=== PATIENT | male | born 1965 | race Caucasian/White ===

== ENCOUNTER 2025-04-19 08:44 | Emergency (ER) | payer BC, SELFPAY ==
[2025-04-19 08:49] VITALS: BP 193/100
[2025-04-19 09:08] VITALS: BMI 26.2
--- NOTE | 2025-04-19 09:13 | ED.GENMED ---
History of Present Illness
<Anais Petty PA-C - Last Filed: 04/19/25 13:19>
General
Chief Complaint: Heart Rate Problem
Time Seen by Provider: 04/19/25 08:57
History of Present Illness
History of Present Illness:
Davdi is a 67-year-old male medical history of hypothyroidism, hyperlipidemia, and episodes of idiopathic tachycardia that have never been captured on telemetry presents after an episode of high heart rates this morning to the 150s. He reports that
he felt palpitations and checked his Apple Watch and saw that his heart rate was in the mid 150s and then came down to the 130s to the hospital. Did not feel dizzy or lightheaded. No nausea or vomiting. Denies any chest pain or shortness of
associated with this event. Reports feeling normal here at the ER.
Past History
<Anais Petty PA-C - Last Filed: 04/19/25 13:19>
Past History
ED Past Medical History: Hypothyroidism
ED Past Surgical History: None
Social History
Tobacco: Non-smoker
Alcohol: None
Drug: None
Phy Exam
<Anais Petty PA-C - Last Filed: 04/19/25 13:19>
General Physical Exam
General Presentation: well appearing and no apparent distress
General Skin: warm and dry
General Habitus: normal
General Mental: alert
General Hydration: appears well hydrated
ENT Exam
ENT Exam: EOMI, pharynx normal, neck supple and normocephalic
Eye Exam
Eye Exam: PERRL, cornea clear and conjunctiva normal
Cardiovascular Exam
Cardiovascular Exam: regular rate/rhythm, no edema, no murmur and normal peripheral pulses
Pulmonary Exam
Pulmonary Exam: lungs clear, no respiratory distress, no rales, no crackles, no rhonchi, no stridor, no wheezing and no cough
Gastrointestinal Exam
Gastrointestinal Exam: normal bowel sounds, non tender, soft, no organomegaly, no pulsatile mass and non distended
Neurological Exam
Neurological Exam: alert, oriented x3, no motor deficits and speech normal
Musculoskeletal Exam
Musculoskeletal Exam: full ROM and no edema
Skin Exam
Skin Exam: normal color, warm/dry, no rash and no petechia
Psychiatric Exam
Psychiatric Exam: normal mood/affect
Course
<Anais Petty PA-C - Last Filed: 04/19/25 13:19>
Orders/Labs/Results
Orders:
Orders
04/19/25 08:53
Electrocardiogram (*1) Urgent
Reason for Study: Chest Pain
EKG- Treatment ONCE
04/19/25 09:15
Basic Metabolic Panel Urgent
Complete Blood Count/With Diff Urgent
Thyroid profile [TSH Reflex To Free T4] Urgent
Troponin I Urgent
Abnormal Lab Results
04/19/25
09:15
Absolute Monos (auto) 0.7 H 10^3/uL
(0.1-0.6)
Monocytes % 10.3 H %
(1.7-9.3)
Glucose 119 H mg/dl
(70-99)
04/19/25 09:15
04/19/25 09:15
Vital Signs
Initial and Last Documented VS:
Initial Vital Signs
Temp Pulse Resp BP Pulse Ox
36.4 C 134 20 193/100 100
04/19/25 08:49 04/19/25 08:49 04/19/25 08:49 04/19/25 08:49 04/19/25 08:49
Last Documented Vital Signs
Temp Pulse Resp BP Pulse Ox
36.4 C 72 16 112/79 95
04/19/25 08:49 04/19/25 12:45 04/19/25 10:01 04/19/25 12:59 04/19/25 12:45
<Sony H. DO Jeny - Last Filed: 04/19/25 12:59>
Orders/Labs/Results
Orders:
Orders
04/19/25 08:53
Electrocardiogram (*1) Urgent
Reason for Study: Chest Pain
EKG- Treatment ONCE
04/19/25 09:15
Basic Metabolic Panel Urgent
Complete Blood Count/With Diff Urgent
Thyroid profile [TSH Reflex To Free T4] Urgent
Troponin I Urgent
Abnormal Lab Results
04/19/25
09:15
Absolute Monos (auto) 0.7 H 10^3/uL
(0.1-0.6)
Monocytes % 10.3 H %
(1.7-9.3)
Glucose 119 H mg/dl
(70-99)
04/19/25 09:15
04/19/25 09:15
Vital Signs
Initial and Last Documented VS:
Initial Vital Signs
Temp Pulse Resp BP Pulse Ox
36.4 C 134 20 193/100 100
04/19/25 08:49 04/19/25 08:49 04/19/25 08:49 04/19/25 08:49 04/19/25 08:49
Last Documented Vital Signs
Temp Pulse Resp BP Pulse Ox
36.4 C 72 16 112/79 95
04/19/25 08:49 04/19/25 12:45 04/19/25 10:01 04/19/25 12:59 04/19/25 12:45
<Anais Petty PA-C - Last Filed: 04/19/25 13:19>
MDM/Problems Addressed
Differential Diagnosis Includes:
Differential includes but is not limited to Rapid AFib, SVT, other arrhythmias, hyperthyroidism, ACS, electrolyte derangements
EKG obtained and reviewed. NSR at 84bpm - unchanged from previous. CBC and BMP WNL. TSH normal normal
Orthostatics negative.
Discussed findings with patient. He provides more information and is able to access amatory results from prior to monitor but showed a brief episode of SVT. Given this and history of this morning was consistent with another run of SVT. Discussed
vagal maneuvers should it recur. Return precautions were discussed in depth. Will follow-up with primary care physician and electric plater
<Anais Petty PA-C - Last Filed: 04/19/25 13:19>
*Pulse Oximetry
SaO2: 100
Oxygen Mode of Delivery: Room air
Patient hypoxic: no
*Critical Care Note
Total Time (30-74mins, 75-104mins- exclusive of procedures): Not Applicable
ED Attending Note
<Anais Petty PA-C - Last Filed: 04/19/25 13:19>
-
Portions of this chart may have been created with voice recognition software.� Occasional wrong word or��sound alike� substitutions may have occurred due to the inherent limitations of voice recognition software.
<Sony Fermin, - Last Filed: 04/19/25 12:59>
ED Attending Note
Patient seen and examined by attending physician: Yes
I performed the substantive portion of visit, reviewed & personally made and approve the management plan that is documented in note by myself or ZULEYKA.: Yes
ED Attending Note:
I agree with Tuyet's note
Patient presents after an episode of rapid heart rate and palpitations. He has had several episodes but the rhythm has never been captured on a rhythm strip or EKG. Patient actually was seen by his electric plater just a couple weeks ago.
General: Awake, Alert, Oriented X3. No acute distress.
Vitals: unremarkable
Head: Atraumatic
Eyes: Pupils equal, EOMI
Throat: Airway intact, no exudates
Lungs: Clear and equal b/l
Heart: Regular rate, no murmurs
Abd: Soft, Nontender, No pulsatile mass
Neuro: Nonfocal
EKG here is normal sinus rhythm, no ischemic changes
Follow-up cardiology. Patient will try to capture the rhythm on his iPhone if he has another event.
Discharge Plan
Departure
Patient Disposition: Home (Routine Discharge)
Date of Disposition: 04/19/25
Time of Disposition: 13:18
Patient with high blood pressure during this ER visit?: No
Discharge Problem:
Tachycardia, Palpitations
Instructions: Supraventricular tachycardia (SVT), Tachycardia
Prescriptions:
No Action
multivitamin [One Daily Multivitamin] 1 EACH tablet
1 ea PO DAILY
nortriptyline 10 MG capsule
10 mg PO HS
ascorbate calcium-bioflavonoid [Freda-C with Bioflavonoids] 1 EACH tablet
1 ea PO DAILY
prednisone 50 MG tablet
50 mg PO DAILY Qty: 5 0RF
Referrals:
UNKNOWN,NO INTERVIEW [Family Provider]
Activity Restrictions/Additional Instructions:
Follow-up with your primary care physician and electric plater. Return to the ER should symptoms recur or you develop new or concerning symptoms.
Interventions
Interventions:
*Risk Screen - Suicide Last Done: 04/19/25 08:49
*General Assessment Last Done: 04/19/25 08:49
*Neglect/Abuse Screening Last Done: 04/19/25 08:49
*ED- Fall Risk Assessment Last Done: 04/19/25 09:08
*ED COVID-19 Vaccine History Last Done: 04/19/25 09:08
*ED Influenza Vaccine History Last Done: 04/19/25 09:08
ED- Cardiac Assessment Last Done: 04/19/25 09:08
ED- Pulmonary Assessment Last Done: 04/19/25 09:08
Discharge Date and Time
Print Language: TELUGU
[2025-04-19 09:25] LABS: Hematocrit 49.2 % (39.0-52.0); Hemoglobin 16.5 g/dL (13.0-18.0); Mean Corp Hgb Conc. 33.5 g/dL (33.0-37.0); Mean Corpuscular Volume 91.3 fL (80.0-94.0); Nucleated Red Blood Cells % 0 % (-); Platelet Count 197 10^3/uL (130-400); Red Cell Dist. Width 12.3 % (11.5-14.5)
[2025-04-19 09:52] LABS: Blood Urea Nitrogen 15 mg/dl (9-20); Calcium 9.8 mg/dl (8.4-10.2); Carbon Dioxide 27 mmol/L (22-30); Chloride 102 mmol/L (98-107); Estimated Creatinine Clearance 83 ml/min; Glucose 119 mg/dl (70-99); Potassium 4.1 mmol/L (3.5-5.1); Sodium 137 mmol/L (135-145); eGFR > 60.00
[2025-04-19 10:01] VITALS: BP 139/92
[2025-04-19 10:04] LABS: Troponin I < 0.012 ng/ml
[2025-04-19 11:00] VITALS: BP 115/79
[2025-04-19 11:59] VITALS: BP 110/79
[2025-04-19 12:00] VITALS: BP 112/79
[2025-04-19 12:59] VITALS: BP 112/79
== END 2025-04-19 13:36 | disposition home or self-care (01) ==
LOC: EMR 08:44
PROVIDERS: Surgery Trauma Surgery; EMERGENCY PHYSICIAN Emergency Medicine
DX: R00.0 Tachycardia, unspecified (principal); R00.2 Palpitations; E78.5 Hyperlipidemia, unspecified; E03.9 Hypothyroidism, unspecified
CPT/HCPCS: 99284; 80048; 84443; 84484; 85025; 93005